=== PATIENT | female | born 2000 | race Hispanic/Latino ===

== ENCOUNTER 2021-08-26 19:00 | Emergency (ER) | payer OTHER, SELFPAY ==
[2021-08-26 19:11] VITALS: BP 139/69; PULSE 99; RESP 18; TEMP 37.7; O2SAT 99
--- NOTE | 2021-08-26 19:11 | ED.HA ---
HPI - Headache General Chief Complaint: Headache Stated Complaint: Headache Time Seen by Provider: 08/26/21 19:11 Source: patient, RN notes reviewed and old records reviewed Mode of arrival: ambulatory Limitations: no limitations History of Present Illness HPI Narrative: 21-year-old female presents to the [facility] with complaints of a headache that is associated with photo and phono sensitivity and nausea. Has been going on for 2 days. Has tried ibuprofen with little relief. Patient denies any chest pain or abdominal pain. No numbness or tingling in extremities. Related Data Home Medications Medication Instructions Recorded Confirmed No Home Medications 08/26/21 08/26/21 Allergies Allergy/AdvReac Type Severity Reaction Status Date / Time No Known Allergies Allergy Mild Verified 08/26/21 19:13 Review of Systems Review of Systems: All systems reviewed & are unremarkable except as noted in HPI and below Constitutional: Constitutional: Reports no additional constitutional complaints, Denies chills and Denies fever(s) Eyes: Eyes: Reports as per HPI, Denies change in vision and Reports photophobia ENT: Reports system reviewed and no additional complaints, except as documented, Denies dysphagia, Denies dizziness, Denies nasal congestion and Denies sore throat Cardiovascular: Cardiovascular: Reports no additional cardiovascular complaints and Denies chest pain Respiratory: Respiratory: Reports no additional respiratory complaints, Denies cough and Denies dyspnea Gastrointestinal: Gastrointestinal: Reports as per HPI, Denies abdominal pain, Reports nausea and Denies vomiting Musculoskeletal: Musculoskeletal: Reports no additional musculoskeletal complaints Integumentary/Breasts: Skin/Breast: Reports system reviewed and no additional complaints, except as docu Neurologic: Reports as per HPI and Reports headache(s) Psychiatric: Psychiatric: Reports no additional psychiatric complaints Allergic/Immunologic: Allergic/Immunologic: Reports no additional allergic/immunologic complaints [facility] Past Medical History Medical History (Updated 08/27/21 @ 19:14 by Yaritza Garcia) No significant medical problems Surgical History Surgical History (Updated 08/27/21 @ 19:13 by Yaritza Garcia) No significant past surgical history Social History Social History (Updated 08/27/21 @ 19:13 by Yaritza Garcia) Living arrangements: with family Gender identity (if verbalized by the patient): Female Comments At the time of my signature, I reviewed and agree with the nursing past medical, surgical, social, and family history. There is no relevant family history pertinent to the patient complaint. Exam Const: General: healthy appearing, no acute distress and alert Nutritional Appearance: well nourished Orientation/consciousness: patient oriented x3 HENMT: Head: normal to inspection Ears: external ears normal, TM's normal bilaterally, EAC's normal and Abnormal EAC present Eyes: Conjunctivae: conjunctivae normal Pupils: Equal, round and reactive pupils present EOM: EOMs intact bilaterally Direct Ophthalmoscopy: no photophobia Neck: Neck: normal visual inspection, no lymphadenopathy and no meningeal signs Chest: Chest palpation & inspection: normal inspection of the chest Resp: Effort & Inspection: normal respiratory effort and no use of accessory muscles Auscultation: clear to auscultation bilaterally, no crackles, no rales, no rhonchi and no wheezes Cardio: Rate: regular rate Rhythm: regular rhythm : General: Yes no CVA tenderness Back/Spine/Pelvis: Back: no CVA tenderness Skin: General skin exam: normal color Rashes: no rashes Wounds: no wounds Neuro: General: patient oriented x3, moves all extremities, no meningeal signs and no focal motor deficits Cranial nerves: Yes Nystagmus not present Speech: normal speech Gait exam (Neuro): Normal gait present Extrem: General: normal to inspection and no pe
[2021-08-26] MEDS: KETOROLAC (*BKC) 60 MG/2 ML VIAL IM (19:21)
[2021-08-26] MEDS: ONDANSETRON HCL ODT 4 MG TABLET SUBLINGUAL (19:21)
== END 2021-08-26 20:09 | disposition home or self-care (01) ==
PROVIDERS: Emergency Provider Nurse Practitioner; PCP Registered Nurse
DX: R51.9 Headache, unspecified (principal)
CPT/HCPCS: 96372; 99213; A9270; G0463; J1885

== ENCOUNTER 2023-07-08 17:05 | Emergency (ER) | payer OTHER, SELFPAY ==
--- NOTE | ~2023-07-08 | XR_ITS ---
EXAM: XR hip RT 2V w AP pelvis DATE: 07/08/2023 21:36 HISTORY: R hip pain, no injury . COMPARISON: None available. FINDINGS: Normal mineralization. No fracture or dislocation. No lytic or blastic lesion. Joint space s are maintained. No erosion or periosteal change. Marked calcification adjacent to the greater troch anter. IMPRESSION: No acute osseous finding in the right hip. Soft tissue calcification adjacent to the greater trochanter may represent calcific tendinitis. Reviewed, dictated and finalized at location K. IMPRESSION: No acute osseous finding in the right hip. Soft tissue calcification adjacent to the greater trochanter may represent calc ific tendinitis.
[2023-07-08 17:52] VITALS: BP 134/84; PULSE 90; RESP 18; TEMP 36.7; O2SAT 100
[2023-07-08 20:37] VITALS: BP 109/65; PULSE 83; RESP 15; O2SAT 99
[2023-07-08] MEDS: ACETAMINOPHEN 500 MG TABLET 1000 MG PO (21:28)
[2023-07-08] MEDS: KETOROLAC 30 MG/ML VIAL (*BKC) 15 MG IM (21:28)
[2023-07-08] MEDS: methocarbamoL 750 MG TABLET 1500 MG PO (21:29)
--- NOTE | 2023-07-08 21:38 | PC.NURSE ---
pt to xray @2130 and back to room @2136.
--- NOTE | 2023-07-08 21:48 | ED.GENADULT ---
HPI - General Adult General Chief complaint: Extremity Injury, Lower Stated complaint: right hip pain Time Seen by Provider: 07/08/23 20:33 History of Present Illness HPI narrative: is a 23-year-old female presenting with right hip pain. It has been going on for 6 days. It is worse with movement. She has point tenderness over the greater trochanter. No trauma. No fevers. No weakness the leg. No swelling. Related Data Allergies Allergy/AdvReac Type Severity Reaction Status Date / Time No Known Allergies Allergy Mild Verified 07/08/23 17:54 [facility] Past Medical History Medical History No significant medical problems Surgical History Surgical History No significant past surgical history Social History Social History Living arrangements: with family Gender identity (if verbalized by the patient): Female Exam Narrative: APPEARANCE: No apparent distress. Head: atraumatic. EYES: EOMI, NOSE: Atraumatic NECK: Trachea midline RESPIRATORY: No increased rate of breathing CARDIOVASCULAR: RRR, ABDOMINAL: Non-distended MUSCULOSKELETAl: Focal exam of the right lower extremity revealed point tenderness over the greater trochanter. Leg is neurovascularly intact. Some pain on passive range of motion of hip. NEURO: Alert. Moving 4/4 extremities SKIN:: Warm, dry. Normal color PSYCHIATRIC: Normal affect Course Vital Signs Vital signs: Vital Signs Temperature 98.0 F 07/08/23 17:52 Pulse Rate 90 07/08/23 17:52 Respiratory Rate 18 07/08/23 17:52 Blood Pressure 134/84 07/08/23 17:52 Pulse Oximetry 100 07/08/23 17:52 Oxygen Delivery Room Air 07/08/23 17:52 Temperature 98.0 F 07/08/23 17:52 Pulse Rate 83 07/08/23 20:37 Respiratory Rate 15 07/08/23 20:37 Blood Pressure 109/65 07/08/23 20:37 Pulse Oximetry 99 07/08/23 20:37 Oxygen Delivery Room Air 07/08/23 17:52 Medical Decision Making [facility] Narrative Medical decision making narrative: -Course: 23-year-old presenting with right hip pain. X-ray showed a calcification which could be calcific tendinitis. Patient will be discharged on a trial of NSAIDs with primary care follow-up. -DDX includes but is not limited to: Calcific tendinitis, trochanteric bursitis, arthritis, occult trauma -Social determinants of health: works as a nurse at a residential -Independent interpretation of studies: x-ray of the pelvis showed a small calcification outside of the right greater trochanter. possible calcific tendinitis. -Interventions: 50 mg Toradol, 1000 mg Tylenol, 1500 mg Robaxin -Shared decision making / Disposition: discharge -RX Motrin, Tylenol Vital Signs Vital Signs: Vital Signs Temperature 98.0 F 07/08/23 17:52 Pulse Rate 90 07/08/23 17:52 Respiratory Rate 18 07/08/23 17:52 Blood Pressure 134/84 07/08/23 17:52 Pulse Oximetry 100 07/08/23 17:52 Oxygen Delivery Room Air 07/08/23 17:52 Temperature 98.0 F 07/08/23 17:52 Pulse Rate 83 07/08/23 20:37 Respiratory Rate 15 07/08/23 20:37 Blood Pressure 109/65 07/08/23 20:37 Pulse Oximetry 99 07/08/23 20:37 Oxygen Delivery Room Air 07/08/23 17:52 Lab Data Labs: UCG Bedside Result Negative Reference Range: Negative Discharge Plan Discharge Clinical Impression: Acute hip pain, Calcific tendinitis Patient Disposition: Home, Self-Care Condition: Stable Instructions: Antibiotic Form, Calcific Tendinitis (ED) Prescriptions: New ibuprofen 800 mg tablet 800 mg PO TID PRN (Reason: pain) 7 Days Qty: 21 0RF acetaminophen 500 mg tablet 1,000 mg PO TID PRN (Reason: bhargav) 7 Days Qty: 42 0RF Follow-up/Referrals: Adriane,MELISSA Reyes [Primary Care Provider]
== END 2023-07-08 22:31 | disposition home or self-care (01) ==
PROVIDERS: Emergency Provider Emergency Medicine; PCP Registered Nurse
DX: M65.251 Calcific tendinitis, right thigh (principal)
CPT/HCPCS: 73502; 81025; 96372; 99283; A9270; J1885